=== PATIENT | male | born 1985 | race Caucasian/White ===

== ENCOUNTER 2016-11-12 17:01 | Emergency (ER) ==
--- NOTE | 2016-11-12 17:43 | ED EKG INTERP ---
EKG Interpretation - EKG Time of EKG reading by physician:: 17:23 EKG Read and Signed by:: Thuan Adkins EKG Interpretation (*Must complete 3 of following elements*): Normal Rate: 90 Rhythm: normal sinus rhythm Comments: normal ECG Attestation - Scribe Verification/Attestation Scribe:: Latia Lima Acting as Scribe for:: Thuan Adkins Scribe documention review:: This chart was documented by a scribe and accurately reflects the service the provider performed and the decisions made by the provider.
[2016-11-12 17:51] LABS: URINE CULTURE PL NEEDED? NO; URINE SOURCE VOIDED
[2016-11-12 17:53] LABS: BILIRUBIN URINE NEGATIVE (NEGATIVE); BLOOD URINE NEGATIVE (NEGATIVE); CLARITY CLEAR (CLEAR); COLOR YELLOW; GLUCOSE URINE NEGATIVE (NEGATIVE); LEUKOCYTES URINE NEGATIVE (NEGATIVE); NITRITE URINE NEGATIVE (NEGATIVE); PROTEIN URINE NEGATIVE (NEGATIVE); UR AMPHETAMINES QUAL NONE DETECTED (NONE DETECT); UR BARBITUATES QUAL NONE DETECTED (NONE DETECT); UR BENZODIAZEPIN QUAL NONE DETECTED (NONE DETECT); UR CANNABINOIDS QUAL NONE DETECTED (NONE DETECT); UR COCAINE QUAL NONE DETECTED (NONE DETECT); UR MDMA QUAL NONE DETECTED (NONE DETECT); UR METHADONE QUAL NONE DETECTED (NONE DETECT); UR METHAMPHETAMINE QUAL NONE DETECTED (NONE DETECT); UR OPIATES QUAL NONE DETECTED (NONE DETECT); UR OXYCODONE QUAL NONE DETECTED (NONE DETECT); UR PCP QUAL NONE DETECTED (NONE DETECT); UR TCA QUAL NONE DETECTED (NONE DETECT); UROBILINOGEN URINE NORMAL
[2016-11-12 18:08] LABS: URINE CAST NONE SEEN /LPF; URINE CRYSTAL NONE SEEN /HPF; URINE EPITHELIAL CELLS <10 /HPF (<10)
[2016-11-12 18:19] LABS: MANUAL DIFF NEEDED? NO
--- NOTE | 2016-11-12 18:19 | PROVIDER DOCUMENTATION ---
HPI-Psychological Disorder - General Source: patient <ByronCatherine kwok - Last Filed: 11/12/16 19:29> <Clovis Manrique - Last Filed: 11/23/16 16:34> - General Chief Complaint: Psych Stated Complaint: SI Time Seen by Provider: 11/12/16 17:20 Allergies/Adverse Reactions: Patient Allergies Allergy/AdvReac Type Severity Reaction Status Date / Time Sulfa (Sulfonamide Allergy Mild RASH Verified 11/12/16 17:06 Antibiotics) Home Medications: Home Medication List Medication Instructions Recorded Confirmed Last Taken Type No Home Medications 11/12/16 11/12/16 Unknown History - History of Present Illness-Psych Nature of Presenting Problem: 31 y/o WM presents to ED with SI and suicide attempt. 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 States that he hasn't taken them since. Reports hx of head injury and PTSD with recurrent OROPEZA; today is only 12/24. Reports did not have a plan, but picked up a knife at home and tried to stab himself in the chest; was not successful. States present and called 911. Pt recently hospitalized for the same about one month ago. denies HI. (Catherine Matthews) Review of Systems - Adult - REVIEW OF SYSTEMS - ADULT Constitutional: reports: no symptoms reported. denies: chills, fever Eyes: reports: no symptoms reported. denies: blurred vision, double vision Ears, Nose, Mouth & Throat: reports: no symptoms reported. denies: ear pain, nose pain Cardiovascular: reports: no symptoms reported. denies: chest pain, palpitations Respiratory: reports: no symptoms reported. denies: dyspnea on exertion, shortness of breath Gastrointestinal: reports: no symptoms reported. denies: nausea, vomiting Genitourinary: reports: no symptoms reported. denies: dysuria, frequency Musculoskeletal: reports: no symptoms reported. denies: joint pain, joint swelling Integumentary: reports: no symptoms reported. denies: nail changes, rash Neurological: reports: see HPI, headache/migraines. denies: numbness, paresthesia Psychiatric: reports: see HPI, depression, suicidal thoughts Endocrine: reports: no symptoms reported. denies: cold intolerance, heat intolerance Hematologic/Lymphatic: reports: no symptoms reported. denies: easy bruising, prolonged bleeding Allergic/Immunologic: reports: no symptoms reported All Other Systems: Reviewed and Negative <Catherine Matthews - Last Filed: 11/12/16 19:29> Past History - Adult - PAST MEDICAL HISTORY-ADULT Review of Records: reports: Nursing Assessment Review, Medications Reviewed - SOCIAL HISTORY Smoking: quit less than 1 year, chew, less than 1 pack/day Provider spent 3-5 mins advising pt. on dangers of tobacco.: Discussed manners to quit use, and f/u contacts for add'l counseling. <Catherine MatthewsLory - Last Filed: 11/12/16 19:29> Physical Exam-Psych Focus - Physical Exam-Psych Initial Vital Signs Reviewed: Yes Appearance: appropriate appearance, appropriate insight, neat, no memory impairment, denies illness, alert Neurological: alert, normal mood/affect, calm, brush finisher II-XII nml as tested, oriented x 3 Behavior/Eye Contact/Speech: cooperative, good eye contact, normal speech Thoughts/Hallucinations: normal thought pattern, no apparent hallucination, auditory hallucinations HENMT: normocephalic/atraumatic, moist mucous membranes Neck: supple, normal inspection Respiratory: lungs clear, normal breath sounds. negative: crackles, rales, rhonchi, stridor, wheezing Cardiovascular: regular rate, rhythm. negative: bradycardia, tachycardia Back Exam: normal inspection Extremity: normal gait Integumentary: normal color, normal turgor, warm/dry <Catherine MatthewsLory - Last Filed: 11/12/16 19:29> Progress - CT/MRI 1 CT Study: Head Impression: See EMR Report (No blood, no injury -per Dr. Perez) - CHANGE OF SHIFT REPORT (ED Provider) Report Given and Care Transferred to:: Dr. Manrique Time of Transfer: 19:29 Items Pending: Physician Consult/Arrival ([facility]) Tentative Impression of Patient: SI <Darcy Matthewsissa Rene - Last Filed: 11/12/16 19:29> <Clovis Manrique - Last Filed: 11/23/16 16:34> - PLAN OF CARE/RESULTS Progress/Plan/Lab Results: Laboratory Tests 11/12/16 11/12/16 11/12/16 17:19 17:19 18:15 WBC RBC Hgb Hct MCV MCH MCHC RDW Std Deviation Plt Count MPV Immature Gran % (Auto) Neut % (Auto) Lymph % (Auto) Bee % (Auto) Eos % (Auto) Baso % (Auto) Immature Gran # (Auto) Neut # (Auto) Lymph # (Auto) Bee # (Auto) Eos # (Auto) Baso # (Auto) Sodium 139 Potassium 4.2 Chloride 102 Carbon Dioxide 26 Anion Gap 11 BUN 9 Creatinine 0.9 Estimated GFR/1.73 m2 > 60 BUN/Creatinine Ratio 10 Glucose 100 Calculated Osmolality 276 Calcium 10.0 Total Bilirubin 0.50 AST 17 ALT 16 Alkaline Phosphatase 93 Total Protein 7.2 Albumin 4.5 Globulin 3.0 Albumin/Globulin Ratio 2.0 Vitamin B12 TSH Free T4 Urine Source VOIDED Urine Color YELLOW Urine Clarity CLEAR Urine pH 8.0 Ur Specific [place] 1.010 Urine Protein NEGATIVE Urine Ketones NEGATIVE Urine Blood NEGATIVE Urine Nitrite NEGATIVE Urine Bilirubin NEGATIVE Urine Urobilinogen NORMAL Urine Microscopic RBC Not Reportable Urine WBC NEGATIVE Ur Epithelial Cells <10 Urine Crystals NONE SEEN Urine Bacteria 1+ Urine Casts NONE SEEN Urine Yeast NONE SEEN Urine Glucose NEGATIVE Urine Opiates Screen NONE DETECTED Ur Oxycodone Screen NONE DETECTED Urine Methadone Screen NONE DETECTED Ur Barbituates Screen NONE DETECTED Ur Tricyclics Screen NONE DETECTED Ur Phencyclidine Scrn NONE DETECTED Ur Amphetamines Screen NONE DETECTED U Methamphetamines Scrn NONE DETECTED Urine MDMA Screen NONE DETECTED U Benzodiazepines Scrn NONE DETECTED Urine Cocaine Screen NONE DETECTED U Cannabinoids Screen NONE DETECTED Plasma/Serum Ethyl Alc 11/12/16 11/12/16 11/12/16 18:15 18:15 18:15 WBC 11.22 H RBC 4.87 Hgb 15.2 Hct 44.7 MCV 91.8 MCH 31.2 H MCHC 34.0 RDW Std Deviation 13.0 Plt Count 198 MPV 10.8 H Immature Gran % (Auto) 0.1 Neut % (Auto) 76.2 H Lymph % (Auto) 15.8 L Bee % (Auto) 6.6 Eos % (Auto) 0.8 Baso % (Auto) 0.5 Immature Gran # (Auto) 0.01 Neut # (Auto) 8.55 H Lymph # (Auto) 1.77 Bee # (Auto) 0.74 H Eos # (Auto) 0.09 Baso # (Auto) 0.06 Sodium Potassium Chloride Carbon Dioxide Anion Gap BUN Creatinine Estimated GFR/1.73 m2 BUN/Creatinine Ratio Glucose Calculated Osmolality Calcium Total Bilirubin AST ALT Alkaline Phosphatase Total Protein Albumin Globulin Albumin/Globulin Ratio Vitamin B12 446 TSH 0.52 Free T4 1.27 Urine Source Urine Color Urine Clarity Urine pH Ur Specific [place] Urine Protein Urine Ketones Urine Blood Urine Nitrite Urine Bilirubin Urine Urobilinogen Urine Microscopic RBC Urine WBC Ur Epithelial Cells Urine Crystals Urine Bacteria Urine Casts Urine Yeast Urine Glucose Urine Opiates Screen Ur Oxycodone Screen Urine Methadone Screen Ur Barbituates Screen Ur Tricyclics Screen Ur Phencyclidine Scrn Ur Amphetamines Screen U Methamphetamines Scrn Urine MDMA Screen U Benzodiazepines Scrn Urine Cocaine Screen U Cannabinoids Screen Plasma/Serum Ethyl Alc Orders Category Date Time Status HEAD W/O CONTRAST [CT] Stat Exams 11/12/16 17:59 Completed ALCOHOL BLOOD Stat Lab 11/12/16 18:15 Completed CBC WITH ELECTRONIC DIFF [HEME] Stat Lab 11/12/16 18:15 Completed COMPREHENSIVE METABOLIC PANEL [CHEM] Stat Lab 11/12/16 18:15 Completed FREE T4 Stat Lab 11/12/16 18:15 Completed TSH Stat Lab 11/12/16 18:[address] W/POSS RFLX CULT [URINALYSIS] Stat Lab 11/12/16 17:19 Com[address]INE DRUG SCREEN PL Stat Lab 11/12/16 17:19 Completed VITAMIN B12 Stat Lab 11/12/16 18:15 Completed Acetaminophen [Tylenol] Med 11/12/16 22:00 Discontinued 1,000 mg .ROUTE .STK-MED ONE Acetaminophen [Tylenol] Med 11/12/16 22:00 Discontinued 1,000 mg PO NOW ONE EKG [EKG] Stat Ther 11/12/16 17:23 Draft (Clovis Manrique) Departure <Catherine Matthews - Last Filed: 11/12/16 19:29> - Departure Time of Disposition Order: 09:00 Certified Medical Emergency: Emergent <Clovis Manrique - Last Filed: 11/23/16 16:34> - Departure DIAGNOSIS: Suicidal ideation, Drug abuse Depression Qualifiers: Depression Type: unspecified Qualified Code(s): F32.9 - Major depressive disorder, single episode, unspecified Disposition: [facility] Condition: Stable Additional Instructions: ED Follow Up Instructions: You have been treated by a care provider in the Emergency Department. These instructions are being provided to you so you can have an understanding of how to care for yourself upon discharge. Upon discharge from the Emergency Department, you are responsible for making arrangements for follow-up care by a physician of your choice. Take all prescribed medications as directed. Return to the Emergency Department immediately for any new or worsening symptoms. You may call the Physician Referral phone number at [phone] to obtain a list of Physicians who are taking new patients. Referrals: None,PCP [Primary Care Provider] - Attestation - Physician/ ERASTO Attestation Patient care was provided by Advanced Practice Provider:: Yes Advanced Practice Provider:: Catherine Matthews Advanced Practice Provider documentation review:: The Mid-level provider documentation, treatment plan and medical decision making was reviewed by the physician who agrees with all treatment and medical decision making by the MLP. <Catherine Matthews - Last Filed: 11/12/16 19:29> Physician Attestation
[2016-11-12 18:28] LABS: BASO% 0.5 % (0.0-0.8); EOS# 0.09 X1000 (0.0-0.7); EOS% 0.8 % (0.0-10.0); HEMATOCRIT 44.7 % (42.0-52.0); HEMOGLOBIN 15.2 g/dL (14.0-18.0); IMM GRAN# 0.01 X1000 (0.0-0.04); IMM GRAN% 0.1 % (0.0-0.5); LYMPH# 1.77 X1000 (1.2-3.4); LYMPH% 15.8 % (20.5-51.1); MCH 31.2 PG (27-31); MCV 91.8 FL (81-99); MONO# 0.74 X1000 (0.11-0.59); MONO% 6.6 % (1.7-9.3); MPV 10.8 FL (7.4-10.4); NEUT% 76.2 % (42.2-75.2); PLT 198 X1000 (130-400); RBC 4.87 XMIL (4.7-6.1)
[2016-11-12 18:55] LABS: AGAP 11; ALBUMIN 4.5 g/dL (3.5-5.0); ALKALINE PHOSPHATASE 93 U/L (32-122); BUN 9 mg/dL (8-22); CHLORIDE 102 mmol/L (98-107); COSMO 276; GOT 17 U/L (10-34); GPT 16 U/L (10-44); POTASSIUM 4.2 mmol/L (3.5-5.1); SODIUM 139 mmol/L (136-145); TCO2 26 mmol/L (25-35); TOTAL PROTEIN 7.2 g/dL (6.3-8.3)
[2016-11-12 19:05] LABS: FREE T4 1.27 ng/dL (0.93-1.70)
--- NOTE | 2016-11-12 19:20 | Diag Imaging Result Document ---
PROCEDURE NAME: HEAD W/O CONTRAST - 11/12/2016 CT BRAIN WITHOUT: FINDINGS: No parenchymal hemorrhage. No epidural or subdural hematoma. No subarachnoid hemorrhage. No skull fracture. No mass identified on this noncontrasted exam. No hydrocephalus. No sinus opacification. IMPRESSION: No hemorrhage. No injury. A preliminary report was given at 6:57 PM.
--- NOTE | 2016-11-12 20:44 | EKG Report ---
Test Performed on : 11/12/2016 5:23:34 PM Test Reason : Psych Blood Pressure : / mmHG Vent. Rate : 090 BPM Atrial Rate : 090 BPM P-R Int : 136 ms QRS Dur : 088 ms QT Int : 346 ms P-R-T Axes : 064 -29 041 degrees QTc Int : 423 ms Normal sinus rhythm. Normal ECG No previous ECGs available Unconfirmed Result
[2016-11-12] MEDS ORDERED: TYLENOL ONE (22:00)
[2016-11-12] MEDS ORDERED: TYLENOL PO ONE (22:00)
[2016-11-13 04:34] VITALS: BP 96/70
== END 2016-11-13 09:00 ==
LOC: P.ED 17:01
DX: F32.9 Major depressive disorder, single episode, unspecified (principal); R45.851 Suicidal ideations; F19.10 Other psychoactive substance abuse, uncomplicated; R44.0 Auditory hallucinations; R51 Headache; F17.210 Nicotine dependence, cigarettes, uncomplicated; Z71.6 Tobacco abuse counseling
CPT/HCPCS: 70450; 80053; 80305; 81001; 82607; 84439; 84443; 85025; 93005; G0480; 80320